=== PATIENT | male | born 1980 | race Caucasian/White ===

== ENCOUNTER 2020-10-31 14:04 | Outpatient (CLI) | payer OTHER, SELFPAY ==
[2020-10-31 15:36] LABS: Semen Viscosity Not Increased (Not Increa.)
[2020-10-31 15:37] LABS: Liquefaction Semen Complete in 30 min. (<30 minutes); Semen Color Opaque (Grey-opaque); Semen Immotility 50 %; Semen Morphology Result to Follow; Semen Non-Progressive Motility 10 %; Semen Progressive Motility 40 % (>32); Semen Total Motility 50 (>40% (PM+NP)); Sperm Count 10.1 Mil/mL (60-150 million/mL); pH Semen 7.5 (7.2-8.0)
[2020-11-05 20:38] LABS: Fructose, Semen 146 mg/dL (150-600)
== END 2020-10-31 14:05 | disposition home or self-care (01) ==
LOC: CHSLAB 14:06
PROVIDERS: PCP Nurse Practitioner Family; Visit Provider Obstetrics & Gynecology
DX: Z31.9 Encounter for procreative management, unspecified (principal)
CPT/HCPCS: 82757; 88160; 89320

== ENCOUNTER 2023-12-07 18:53 | Emergency (ER) | payer OTHER, SELFPAY ==
[2023-12-07 19:06] VITALS: BP 101/66; PULSE 100; RESP 18; TEMP 36.6; O2SAT 100
[2023-12-07 19:51] VITALS: BP 142/94; PULSE 95; RESP 19; TEMP 36.7; O2SAT 97
--- NOTE | 2023-12-07 21:05 | ED.NAVMDI ---
HPI - Nausea/Vomiting/Diarrhea General Chief complaint: Nausea/Vomiting/Diarrhea Stated complaint: vomiting Time Seen by Provider: 12/07/23 19:17 History of Present Illness HPI Narrative: 43-year-old male reports for evaluation for sensation of esophageal impaction. Patient states he was eating brothers around 6 or 630 which consisted of rice, macoroni and chicken. States he took a bite felt something get stuck in his throat and since then has had difficulty tolerating his secretions. He reports a few episodes of vomiting and the sensation of a food impaction. He denies hematemesis or coffee-ground emesis, chest pain, dyspnea, abdominal pain, fever. He states that he has had food stuck in his throat before which normal results on his own. He has never seen a GI specialist or had an EGD. Related Data Allergies Allergy/AdvReac Type Severity Reaction Status Date / Time No Known Allergies Allergy Verified 09/22/20 08:33 Review of Systems Review of Systems: CONSTITUTIONAL: Denies fever, chills, or sweats. EYES: Denies visual changes, redness, or discharge. ENT: see HPI CARDIOVASCULAR: Denies chest pain, palpitations, or edema. RESPIRATORY: Denies cough or dyspnea. GASTROINTESTINAL: See HPI GENITOURINARY: Denies dysuria or hematuria. SKIN: Denies rash or itching. MUSCULOSKELETAL: Denies back pain, joint pain, or myalgia. NEUROLOGIC: Denies headache, numbness, or weakness. PSYCHIATRIC: Denies anxiety or depression. [facility] Social History Social History Smoking status: Never smoker Alcohol intake: current Substance use: never Exam Narrative: GENERAL: Well-appearing, well-nourished, and in no acute distress. HEAD: Normocephalic, atraumatic. EYES: PERRLA and EOMI. ENT: Nares clear, No epistaxis. Mucous membranes moist. posterior pharynx without erythema, edema or tonsillar hypertrophy. Uvula is midline. NECK: Supple. CHEST: Clear to auscultation. No respiratory distress. HEART: Regular rate and rhythm. No murmur heard. Normal peripheral pulses. ABDOMEN: Soft, nontender, nondistended, normal active bowel sounds. EXTREMITIES: Normal range of motion. No edema. SKIN: Warm, dry, no rash. NEURO: No focal deficits. Alert and oriented x3 Course Vital Signs Vital signs: Vital Signs Temperature 97.9 F 12/07/23 19:06 Pulse Rate 100 12/07/23 19:06 Respiratory Rate 18 12/07/23 19:06 Blood Pressure 101/66 12/07/23 19:06 Pulse Oximetry 100 12/07/23 19:06 Oxygen Delivery Room Air 12/07/23 19:06 Temperature 98.1 F 12/07/23 21:23 Pulse Rate 75 12/07/23 21:23 Respiratory Rate 16 12/07/23 21:23 Blood Pressure 139/92 H 12/07/23 21:23 Pulse Oximetry 98 12/07/23 21:23 Oxygen Delivery Room Air 12/07/23 19:06 MDM - Nausea/Vomiting/Diarrhea MDM Narrative Medical decision making narrative: 43-year-old male reports for evaluation for esophageal impaction after eating Y brothers for dinner. See HPI for further history. Vitals are stable. Denies hematemesis or coffee-ground emesis. No chest pain or abdominal pain. Exam is significant for the above. Patient received Pepsi with resolution of symptoms. He is tolerating his secretions and has had no episodes of emesis. I offered a further workup including CT scan to evaluate for esophageal impaction, however he feels that it has resolved and he does not desire further workup. I will provide a GI referral encouraged him to follow up for an outpatient EGD. ED return precautions discussed. He is agreeable to plan verbalized understanding. Discharged in stable condition. Discharge Plan Discharge Clinical Impression: Food impaction of esophagus Patient Disposition: Home, Self-Care Condition: Stable Instructions: Antibiotic Form, Food Impaction (ED) Additional Instructions: you were evaluated in the emergency department for a food impactio
--- NOTE | 2023-12-07 21:17 | PC.NURSE ---
Per [place] EDP PA patient drank a Pepsi and the food bolus went down.
[2023-12-07 21:23] VITALS: BP 139/92; PULSE 75; RESP 16; TEMP 36.7; O2SAT 98
== END 2023-12-07 21:24 | disposition home or self-care (01) ==
PROVIDERS: Emergency Provider Physician Assistant; PCP Nurse Practitioner Family
DX: T18.128A Food in esophagus causing other injury, initial encounter (principal); W44.8XXA Other foreign body entering into or through a natural orifice, initial encounter
CPT/HCPCS: 99281

== ENCOUNTER 2024-01-31 01:05 | Day surgery (SDC) | payer OTHER, SELFPAY ==
[2024-01-25 11:45] VITALS: BMI 28.4
--- NOTE | 2024-01-27 10:47 | SUR.PREOP ---
Patient called regarding upcoming procedure. Message left regarding appointment times.
[2024-01-31 12:20] VITALS: BP 117/79; PULSE 71; RESP 18; TEMP 36.4; O2SAT 100; BMI 26.9
[2024-01-31] MEDS: LACTATED RINGERS 1,000 ML 150 ML IV CONT (12:22)
--- NOTE | 2024-01-31 12:57 | P.PNAN_ITS ---
Anes - Initial Pre Proc Eval Procedure: Operation Date: 01/31/24 13:00 Proposed Procedures p Esophagogastroduodenoscopy - Colin Muniz MD Date/Time: 01/31/24 12:57 Surgeon: Colin Muniz MD Pre Op Diagnosis: Food in esophagus causing other injury,Dysphagia Patient Data Age: 43 Gender: M Height: 1.85 m Weight: 92.4 kg Last Vital Signs Temp 97.6 F 01/31/24 12:20 Pulse 71 01/31/24 12:20 Resp 18 01/31/24 12:20 BP 117/79 01/31/24 12:20 Pulse Ox 100 01/31/24 12:20 O2 Del Method Room Air 01/31/24 12:20 Allergies Allergy/AdvReac Type Severity Reaction Status Date / Time No Known Allergies Allergy Verified 01/31/24 12:18 Home Medications Medication Instructions Recorded Confirmed Type fluticasone propionate 50 See Rx Instructions .Route 12/15/20 01/31/24 Rx mcg/actuation nasal .COMPLEX #48 mL spray,suspension One Daily [facility] 1 tab-cap PO DAILY 01/25/24 01/31/24 History Vitamin D3 1 tab-cap PO DAILY 01/25/24 01/31/24 History krill oil 1 cap PO DAILY 01/25/24 01/31/24 History omega-3 fatty acids 1 cap PO DAILY 01/25/24 01/31/24 History vitamin B complex 1 tablet PO DAILY 01/25/24 01/31/24 History Patient hx anesthesia problems: none Family hx anesthesia problems: none Results Review: All pre-operative results and documents have been reviewed as part of the pre- operative evaluation. [facility] Past Medical History Medical History (Updated 12/21/23 @ 09:27 by Gisella Johnston APRN) Colon cancer screening Dysphagia Social History Social History Smoking status: Never smoker Alcohol intake: current Drinks per week: 2 Alcohol use details: DRINKS Substance use: never Substance use type: does not use Living arrangements: with family Spiritual care concerns: No Anes - Eval Final PreProcedure Day of Procedure 01/31/24 12:57 Patient weight: normal Heart: regular rate and rhythm Lungs: clear to auscultation Airway: Mallampati scale class II Neurological: alert and oriented Last oral intake: >/= 8 hours ASA classification: II Emergent: no Anesthetic plan: proceed Anesthesia type and monitoring: general GIVS and standard monitoring Results Review: All pre-operative results and documents have been reviewed as part of the pre- operative evaluation. Informed Consent: The patient's anesthetic plan and its attendant risks and benefits were discussed with the patient/family/POA. Questions were solicited and answers provided to the satisfaction of the patient/family/POA.
--- NOTE | 2024-01-31 13:13 | PM.HPGS ---
History of Present Illness History of Present Illness Consent: Risks, benefits, and alternatives have been discussed and questions answered. Patient agrees to proceed with procedure. Chief complaint: Food in esophagus causing other injury,Dysphagia Narrative: Akil Childress is a 43 year old male with intermittent dysphagia for 10 years and food bolus few months ago that resolved medically, did not require EGD in fact never had one, he is not using ppi. Review of Systems Constitutional: Constitutional: Denies headache(s) and Denies weakness Eyes: Eyes: Denies blurry vision ENT: Reports Normal hearing present, Denies headache(s) and Denies neck pain Cardiovascular: Cardiovascular: Denies chest pain and Denies dyspnea Respiratory: Respiratory: Denies dyspnea Gastrointestinal: Gastrointestinal: Reports no additional gastrointestinal complaints Genitourinary: Genitourinary: Denies dysuria Musculoskeletal: Musculoskeletal: Denies neck pain Integumentary/Breasts: Skin/Breast: Denies dry skin Neurologic: Reports Normal hearing present, Denies headache(s) and Denies weakness Psychiatric: Psychiatric: Denies anxiety Endocrine: Endocrine: Denies change in body appearance Hematologic/Lymphatic: Hematologic/Lymphatic: Denies easy bleeding Allergic/Immunologic: Allergic/Immunologic: Denies urticaria PMF Past Medical History Medical History (Updated 12/21/23 @ 09:27 by Gisella Johnston, PANEL CUTTER) Colon cancer screening Dysphagia Social History Social History Smoking status: Never smoker Alcohol intake: current Drinks per week: 2 Alcohol use details: DRINKS Substance use: never Substance use type: does not use Living arrangements: with family Spiritual care concerns: No Meds Home Medications and Allergies Home Medications Medication Instructions Recorded Confirmed Type fluticasone propionate 50 See Rx Instructions .Route 12/15/20 01/31/24 Rx mcg/actuation nasal .COMPLEX #48 mL spray,suspension One Daily [email or web address] 1 tab-cap PO DAILY 01/25/24 01/31/24 History Vitamin D3 1 tab-cap PO DAILY 01/25/24 01/31/24 History krill oil 1 cap PO DAILY 01/25/24 01/31/24 History omega-3 fatty acids 1 cap PO DAILY 01/25/24 01/31/24 History vitamin B complex 1 tablet PO DAILY 01/25/24 01/31/24 History Allergies Allergy/AdvReac Type Severity Reaction Status Date / Time No Known Allergies Allergy Verified 01/31/24 12:18 Vital Signs Vital Signs - 24 hr 01/31/24 12:20 Temperature 97.6 F Pulse Rate 71 Respiratory Rate 18 Blood Pressure 117/79 Pulse Oximetry 100 Oxygen Delivery Room Air Exam Const: General: comfortable and no acute distress HENMT: Face/Nose/Sinus: Normal nares present Eyes: General: appearance normal, both eyes and all related structures Neck: Neck: no JVD Resp: Auscultation: clear to auscultation bilaterally Cardio: Rate: regular rate Rhythm: regular rhythm GI: Inspection: non-distended GI Palp: Yes Soft to palpation Skin: General skin exam: normal color Neuro: General: gait normal Speech: normal speech Extrem: General: normal to inspection Psych: Mental Status: mental status grossly normal Assessment and Plan Assessment and plan (1) Dysphagia: Code(s): R13.10 - Dysphagia, unspecified Status: Acute Assessment and Plan: egd with bx to assess for EoE
[2024-01-31] MEDS: BENZOCAINE (*SP) 60 ML SPRAY CAN (HURRICAINE) 1 SPRAY MUCOUS MEM (13:22)
[2024-01-31 13:31] VITALS: BP 106/69; PULSE 62; RESP 17; O2SAT 97
[2024-01-31 13:41] VITALS: BP 99/82; PULSE 61; RESP 23; O2SAT 97
[2024-01-31 13:51] VITALS: BP 103/80; PULSE 60; RESP 18; O2SAT 97
--- OUTSIDE RECORDS SUMMARY | 2024-02-01 08:57 | XMS_ITS | Referral Summary ---
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
== END 2024-01-31 14:00 | disposition home or self-care (01) ==
PROVIDERS: PCP Nurse Practitioner Family; Visit Provider Internal Medicine Gastroenterology
PROC: 0DJ08ZZ Inspection of Upper Intestinal Tract, Via Natural or Artificial Opening Endoscopic (ICD-10-PCS; CPT 43235; principal; 2024-01-31 13:00)
DX: K21.00 Gastro-esophageal reflux disease with esophagitis, without bleeding (principal); T18.128A Food in esophagus causing other injury, initial encounter; W44.8XXA Other foreign body entering into or through a natural orifice, initial encounter
CPT/HCPCS: 43239; 88305; J2704; J7120